=== PATIENT | female | born 1980 | race Caucasian/White ===

== ENCOUNTER 2018-02-05 10:32 | Inpatient (IN) | payer OTHER ==
[2018-02-04 08:38] VITALS: BP 100/70
[2018-02-04 09:21] LABS: BASOPHILS # (AUTO) 0.02 x10^3/uL (0-0.1); BASOPHILS % (AUTO) 0 % (0-1); EOSINOPHILS # (AUTO) 0.16 x10^3/uL (0-0.4); EOSINOPHILS % (AUTO) 2 % (1-7); LYMPHOCYTES # (AUTO) 2.43 x10^3/uL (1-3.4); LYMPHOCYTES % (AUTO) 33 % (22-44); MD NO; MEAN CORPUSCULAR HGB CONC 33.1 g/dL (32.4-35.8); MEAN CORPUSCULAR VOLUME 93.6 fL (80-100); MEAN PLATELET VOLUME 8.3 fL (7.4-10.4); MONOCYTES # (AUTO) 0.46 x10^3/uL (0.2-0.8); MONOCYTES % (AUTO) 6 % (2-9); NEUTROPHILS # (AUTO) 4.39 x10^3/uL (1.8-6.8); NEUTROPHILS % (AUTO) 59 % (42-75); PLATELET COUNT 344 x10^3/uL (130-400); RED BLOOD COUNT 4.66 x10^6/uL (3.82-5.3); RED CELL DISTRIBUTION WIDTH 13.1 % (9.6-15.2)
[2018-02-04 09:33] LABS: ALANINE AMINOTRANSFERASE 25 U/L (12-78); ALBUMIN 4.1 g/dL (3.4-5.0); ANION GAP 8 mmol/L (5-15); CALCIUM 8.8 mg/dL (8.5-10.1); CHLORIDE 107 mmol/L (98-107); CREATININE 0.86 mg/dL (0.55-1.02)
[2018-02-04 09:38] LABS: ALKALINE PHOSPHATASE 54 U/L (45-117); BILIRUBIN,TOTAL 0.4 mg/dL (0.2-1.0); TOTAL PROTEIN 7.1 g/dL (6.4-8.2)
[2018-02-04 09:57] LABS: MICROSCOPIC AUTO
[2018-02-04 10:02] LABS: CULTURE INDICATED? YES
[~2018-02-05] VITALS: Ht 165.1 cm; Wt 62.0 kg
[~2018-02-05 10:32] MED LIST: HYDR-757; NONE PER PT
[2018-02-05] MEDS ORDERED: LACTATED RINGERS 1,000 ML IV SCH (10:54)
[2018-02-05] MEDS ORDERED: LIDOCAINE-MPF 1%, 2ML INFIL ONE (11:00)
[2018-02-05] MEDS ORDERED: LIDOCAINE-MPF 1%, 2ML ONE (11:08)
[2018-02-05] MEDS ORDERED: BUPIVACAINE/PF 0.25% ONE ×2 (11:56→13:05)
[2018-02-05] MEDS ORDERED: EPINEPHRINE 1 MG/ML, 1ML ONE (11:57)
[2018-02-05] MEDS ORDERED: OxyconTIN ER 20 MG TAB.ER PO ONE (12:00)
[2018-02-05] MEDS ORDERED: GABAPENTIN 300 MG CAPSULE PO ONE (12:00)
[2018-02-05] MEDS ORDERED: ACETAMINOPHEN 500 MG TABLET PO ONE (12:00)
[2018-02-05] MEDS ORDERED: SCOPOLAMINE PATCH, 1.5MG PATCH.TD72 TD ONE ×2 (12:00→12:06)
[2018-02-05] MEDS ORDERED: ACETAMINOPHEN 500 MG TABLET ONE (12:06)
[2018-02-05] MEDS ORDERED: GABAPENTIN 300 MG CAPSULE ONE (12:07)
[2018-02-05] MEDS ORDERED: MIDAZOLAM 1 MG/ML, 2ML ONE (12:08)
[2018-02-05] MEDS ORDERED: FENTANYL PF 250 MCG/5ML ONE (12:08)
[2018-02-05] MEDS ORDERED: OxyconTIN ER 20 MG TAB.ER ONE (12:09)
[2018-02-05] MEDS ORDERED: CEFAZOLIN 1,000 MG ONE (12:20)
[2018-02-05] MEDS ORDERED: NEOSTIGMINE 1 MG/ML, 10ML ONE (12:20)
[2018-02-05] MEDS ORDERED: PROPOFOL 10 MG/ML, 20ML ONE (12:20)
[2018-02-05] MEDS ORDERED: DEXAMETHASONE 4 MG/ML, 1ML ONE (12:20)
[2018-02-05] MEDS ORDERED: ROCURONIUM 10 MG/ML,10ML ONE (12:20)
[2018-02-05] MEDS ORDERED: FLUORESCEIN SODIUM 500 MG/5 ML ONE (12:29)
[2018-02-05] MEDS ORDERED: HYDROmorphone 1 MG/ML, 1ML IV PRN (13:30)
[2018-02-05] MEDS ORDERED: FENTANYL PF 100 MCG/2ML IV PRN (13:30)
[2018-02-05] MEDS ORDERED: MEPERIDINE/PF 25MG/0.5ML IVPush PRN (13:30)
[2018-02-05] MEDS ORDERED: PROMETHAZINE 12.5 MG SUPP PR PRN (13:30)
[2018-02-05] MEDS ORDERED: LORazepam 2 MG/ML, 1ML IVPush PRN (13:30)
[2018-02-05] MEDS ORDERED: ALBUTEROL SULFATE 2.5 MG/3 ML NPPB PRN (13:30)
[2018-02-05] MEDS ORDERED: LABETALOL 5MG/ML, 20ML IV PRN (13:30)
[2018-02-05] MEDS ORDERED: OXYcodone 5 MG/5 ML ORAL.SOL UDC PO PRN (13:30)
[2018-02-05] MEDS ORDERED: PROMETHAZINE 25 MG/ML, 1ML IV PRN (13:30)
[2018-02-05] MEDS ORDERED: hydrALAzine 20 MG/ML, 1ML IV PRN (13:30)
[2018-02-05] MEDS ORDERED: morphine SULFATE 10 MG/ML, 1ML IV PRN (13:30)
[2018-02-05] MEDS ORDERED: MEPERIDINE/PF 25MG/0.5ML ONE (14:41)
[2018-02-05] MEDS ORDERED: PROMETHAZINE 25 MG/ML, 1ML ONE (14:44)
[2018-02-05] MEDS ORDERED: ACETAMINOPHEN 650 MG SUPP PR PRN (17:00)
[2018-02-05] MEDS ORDERED: ONDANSETRON 2MG/ML, 2ML IV PRN (17:00)
[2018-02-05] MEDS ORDERED: KETOROLAC 30 MG/1 ML IV PRN (17:00)
[2018-02-05] MEDS ORDERED: ACETAMINOPHEN 325 MG TABLET PO PRN (17:00)
[2018-02-05] MEDS ORDERED: SIMETHICONE 80 MG CHEW TAB PO PRN (17:00)
[2018-02-05] MEDS ORDERED: IBUPROFEN 600 MG TABLET PO PRN (17:00)
[2018-02-05 18:58] VITALS: BP 92/57
[2018-02-05] MEDS: SODIUM CHLORIDE FLUSH 10ML SYR IVF SCH (21:00)
[2018-02-05] MEDS: LACTATED RINGERS 1,000 ML IV SCH (22:00)
[2018-02-06 00:17] VITALS: BP 92/50
[2018-02-06 02:25] VITALS: BP 90/48
[2018-02-06] MEDS: LACTATED RINGERS 1,000 ML IV SCH (04:00)
[2018-02-06] MEDS: OXYcodone/APAP 5/325MG TABLET PO PRN ×2 (05:34→09:38)
[2018-02-06 06:53] VITALS: BP 84/54
[2018-02-06] MEDS: SODIUM CHLORIDE FLUSH 10ML SYR IVF SCH (09:00)
[2018-02-06] MEDS ORDERED: OXYC-302 PO (12:45)
[2018-02-06] MEDS ORDERED: IBUP-1222 PO (12:45)
== END 2018-02-06 12:50 | disposition home or self-care (01) | DRG 742 ==
LOC: OUT 10:32 → 4NOR 15:42 → OUT 15:58 → 4NOR 15:58 → DCLOUNGE 02-06 12:44
PROVIDERS: ADMIT Obstetrics & Gynecology; ATTEND Obstetrics & Gynecology
PROC: 0UT9FZZ Resection of Uterus, Via Natural or Artificial Opening With Percutaneous Endoscopic Assistance (ICD-10-PCS; 2018-02-05)
PROC: 0TJB8ZZ Inspection of Bladder, Via Natural or Artificial Opening Endoscopic (ICD-10-PCS; principal; 2018-02-05 12:30)
DX: N92.0 Excessive and frequent menstruation with regular cycle (principal); D62 Acute posthemorrhagic anemia; Z88.2 Allergy status to sulfonamides; Z98.82 Breast implant status
CPT/HCPCS: 36415; 71046; 80053; 81001; 84702; 85014; 85018; 85025; 86850; 86900; 87086; 88307; J0171; J0690; J1100; J2175; J2250; J2270; J2550; J2704; J2710; J3010; J3490; J7120